=== PATIENT | male | born 1980 | race Caucasian/White ===

== ENCOUNTER 2020-06-13 07:16 | Day surgery (SDC) | payer MEDICAID ==
[~2020-06-13] VITALS: Ht 190.5 cm; Wt 100.0 kg
[~2020-06-13 07:16] MED LIST: ACET-1600 PO; CHOL10003 PO; IBUP-1902 PO; OXYB10TA26 PO; SULF1TAB24 PO; TAMS-11 PO
[2020-06-13] MEDS ORDERED: LACTATED RINGERS 1,000 ML IV SCH (08:00)
[2020-06-13] MEDS ORDERED: CHLORHEXIDINE 15 ML UDC MM ONE (08:00)
[2020-06-13] MEDS ORDERED: MIDAZOLAM 1 MG/ML, 2ML ONE (08:40)
[2020-06-13] MEDS ORDERED: FENTANYL PF 250 MCG/5ML ONE (08:40)
[2020-06-13] MEDS ORDERED: DEXAMETHASONE 4 MG/ML, 1ML ONE (09:47)
[2020-06-13] MEDS ORDERED: ROCURONIUM 10 MG/ML,10ML ONE (09:47)
[2020-06-13] MEDS ORDERED: GLYCOPYRROLATE 0.2MG/1ML, 5ML ONE (09:47)
[2020-06-13] MEDS ORDERED: PHENYLEPHRINE 10 MG/ML ONE (09:47)
[2020-06-13] MEDS ORDERED: PROPOFOL 10 MG/ML, 20ML ONE (09:47)
[2020-06-13] MEDS ORDERED: CEFAZOLIN 1,000 MG ONE (09:47)
[2020-06-13] MEDS ORDERED: ONDANSETRON 2MG/ML, 2ML ONE (09:47)
[2020-06-13] MEDS ORDERED: NEOSTIGMINE 1 MG/ML, 10ML ONE (09:47)
[2020-06-13] MEDS ORDERED: SUCCINYLCHOLINE 20 MG/ML, 10ML ONE (09:47)
[2020-06-13] MEDS ORDERED: PROMETHAZINE 25 MG/ML, 1ML IVPush PRN (10:30)
[2020-06-13] MEDS ORDERED: HALOPERIDOL 5 MG/ML IV PRN (10:30)
[2020-06-13] MEDS ORDERED: LORazepam 2 MG/ML, 1ML IVPush PRN (10:30)
[2020-06-13] MEDS ORDERED: METOPROLOL 1 MG/ML, 5ML IV PRN (10:30)
[2020-06-13] MEDS ORDERED: METOCLOPRAMIDE 5 MG/ML, 2ML IVPush PRN (10:30)
[2020-06-13] MEDS ORDERED: DIPHENHYDRAMINE 50 MG/ML, 1ML IVPush PRN (10:30)
[2020-06-13] MEDS ORDERED: OXYcodone 5 MG/5 ML ORAL.SOL UDC PO PRN (10:30)
[2020-06-13] MEDS ORDERED: LABETALOL 5MG/ML, 20ML IV PRN (10:30)
[2020-06-13] MEDS ORDERED: hydrALAzine 20 MG/ML, 1ML IV PRN (10:30)
[2020-06-13] MEDS ORDERED: EPHEDRINE 50 MG/ML, 1ML IVPush PRN (10:30)
[2020-06-13] MEDS ORDERED: ONDANSETRON 2MG/ML, 2ML IVPush PRN (10:30)
[2020-06-13] MEDS ORDERED: ACETAMINOPHEN 325 MG TABLET PO PRN (10:30)
[2020-06-13] MEDS ORDERED: OMNIPAQUE 350 MG/ML, 50 ML BOTTLE ONE (10:35)
[2020-06-13] MEDS ORDERED: OMNIPAQUE 350 MG/ML, 50 ML BOTTLE IV ONE (10:50)
[2020-06-13] MEDS ORDERED: FENTANYL PF 100 MCG/2ML ONE (12:00)
[2020-06-13] MEDS ORDERED: OXYcodone 5 MG/5 ML ORAL.SOL UDC ONE (12:00)
[2020-06-13] MEDS: FENTANYL PF 100 MCG/2ML IV PRN ×2 (12:03→12:08)
[2020-06-13] MEDS ORDERED: HYDROmorphone 1 MG/ML, 1ML INJ ONE (12:18)
[2020-06-13] MEDS: HYDROmorphone 1 MG/ML, 1ML INJ IVPush PRN ×2 (12:20→12:25)
== END 2020-06-13 13:30 | disposition home or self-care (01) ==
LOC: OUT 07:16
PROVIDERS: ATTEND Urology
DX: N20.1 Calculus of ureter (principal); N39.0 Urinary tract infection, site not specified; Z20.822 Contact with and (suspected) exposure to COVID-19; Z79.899 Other long term (current) drug therapy; Z87.442 Personal history of urinary calculi; Z87.891 Personal history of nicotine dependence; Z88.0 Allergy status to penicillin
CPT/HCPCS: 52353; 52356; 74420; 81001; 82360; 87086; 88300; C1726; C1758; C1769; C2617; J0330; J0690; J1100; J1170; J2250; J2370; J2405; J2704; J2710; J3010; J7120; Q9967; U0003; 74425